=== PATIENT | male | born 1980 | race Two or more races ===

== ENCOUNTER 2022-02-20 20:38 | Emergency (ER) | payer SELFPAY ==
[2022-02-20] MEDS ORDERED: Acetaminophen 325 MG Tab PO ONE (21:21)
== END 2022-02-20 21:45 ==
LOC: JD.ED 20:38
DX: T75.4XXA Electrocution, initial encounter (principal); S00.81XA Abrasion of other part of head, initial encounter; I10 Essential (primary) hypertension; Z79.899 Other long term (current) drug therapy; Z02.89 Encounter for other administrative examinations; W86.8XXA Exposure to other electric current, initial encounter
CPT/HCPCS: 99282; 99283

== ENCOUNTER 2022-03-03 17:19 | Emergency (ER) | payer SELFPAY | END 2022-03-03 20:36 | disposition home or self-care (01) | LOC: JD.ED 17:19 | DX: F15.10 Other stimulant abuse, uncomplicated (principal); F17.210 Nicotine dependence, cigarettes, uncomplicated; Z79.899 Other long term (current) drug therapy; Z86.16 Personal history of COVID-19 | CPT/HCPCS: 36415; 80053; 80143; 80179; 80306; 80307; 81001; 83735; 84443; 84484; 85025; 93005; 99283 ==

== ENCOUNTER 2022-06-16 22:01 | Emergency (ER) | payer SELFPAY ==
[2022-06-16] MEDS ORDERED: cloNIDine 0.1 MG Tab PO ONE (22:46)
[2022-06-17] MEDS ORDERED: LORazepam 1 MG Tab PO ONE (01:13)
== END 2022-06-17 01:35 | disposition home or self-care (01) ==
LOC: JD.ED 22:01
DX: F19.10 Other psychoactive substance abuse, uncomplicated (principal); I10 Essential (primary) hypertension; F17.210 Nicotine dependence, cigarettes, uncomplicated; Z79.899 Other long term (current) drug therapy; Z86.16 Personal history of COVID-19
CPT/HCPCS: 36415; 80053; 80143; 80179; 80306; 80307; 84443; 85025; 93005; 99283; A9270; 93010; 99284

== ENCOUNTER 2022-06-21 20:58 | Emergency (ER) | payer SELFPAY ==
[2022-06-21] MEDS ORDERED: Ondansetron 4 MG Tab.DIS PO ONE (22:31)
[2022-06-21] MEDS ORDERED: LORazepam 1 MG Tab PO ONE (22:32)
== END 2022-06-21 22:52 | disposition home or self-care (01) ==
LOC: JD.ED 20:58
DX: F10.230 Alcohol dependence with withdrawal, uncomplicated (principal); F19.10 Other psychoactive substance abuse, uncomplicated; I10 Essential (primary) hypertension; Z72.0 Tobacco use; Z79.899 Other long term (current) drug therapy
CPT/HCPCS: 36415; 80053; 80143; 80179; 80306; 80307; 85025; 99283; A9270; 99284